=== PATIENT | male | born 1985 | race Hispanic/Latino ===

== ENCOUNTER 2020-08-10 08:19 | Emergency (ER) | payer OTHER ==
--- NOTE | 2020-08-10 10:19 | EDPHYS ---
Physician Documentation [facility] Name: Td Jackson Age: 35 yrs Sex: Male : 1985 Arrival Date: 08/10/2020 Time: 08:21 Bed 14 Private MD: ED Physician Mikie Crowley HPI: 08/10 16:35 This 35 yrs old Male presents to ER via Ambulatory with complaints of Covid +, tw4 Fever, Chills. 16:35 The patient reports fever, not measured (subjective). Onset: The symptoms/episode tw4 began/occurred yesterday. Modifying factors: there are no obvious modifying factors. Associated signs and symptoms: Pertinent positives: cough, shortness of breath. Severity of symptoms: At their worst the symptoms were moderate in the emergency department the symptoms are unchanged. diagnosed with covid three days ago. Historical: - Allergies: 08:44 No Known Allergies; ss - PMHx: 08:44 None; ss - PSHx: 08:44 None; ss - Immunization history:: Adult Immunizations unknown. - Social history:: Smoking status: Patient denies any tobacco usage or history of. ROS: 16:35 Constitutional: Negative for fever, chills, and weight loss, Eyes: Negative for injury, tw4 pain, redness, and discharge, Cardiovascular: Negative for chest pain, palpitations, and edema, Abdomen/GI: Negative for abdominal pain, nausea, vomiting, diarrhea, and constipation, Back: Negative for injury and pain, MS/Extremity: Negative for injury and deformity, Skin: Negative for injury, rash, and discoloration, Neuro: Negative for headache, weakness, numbness, tingling, and seizure. 16:35 Respiratory: Positive for cough, shortness of breath. Exam: 16:35 Constitutional: This is a well developed, well nourished patient who is awake, alert, tw4 and in no acute distress. Head/Face: Normocephalic, atraumatic. Chest/axilla: Normal chest wall appearance and motion. Nontender with no deformity. No lesions are appreciated. Cardiovascular: Regular rate and rhythm with a normal S1 and S2. No gallops, murmurs, or rubs. Normal PMI, no JVD. No pulse deficits. Respiratory: Lungs have equal breath sounds bilaterally, clear to auscultation and percussion. No rales, rhonchi or wheezes noted. No increased work of breathing, no retractions or nasal flaring. Abdomen/GI: Soft, non-tender, with normal bowel sounds. No distension or tympany. No guarding or rebound. No evidence of tenderness throughout. Back: No spinal tenderness. No costovertebral tenderness. Full range of motion. MS/ Extremity: Pulses equal, no cyanosis. Neurovascular intact. Full, normal range of motion. Neuro: Awake and alert, GCS 15, oriented to person, place, time, and situation. Cranial nerves II-XII grossly intact. Motor strength 5/5 in all extremities. Sensory grossly intact. Cerebellar exam normal. Normal gait. Vital Signs: 08:40 BP 130 / 88; Pulse 104; Resp 17; Temp 98.2(TE); Pulse Ox 98% on R/A; Weight 95.25 kg; ss Height 5 ft. 9 in. (175.26 cm); Pain 7/10; 08:40 Body Mass Index 31.01 (95.25 kg, 175.26 cm) ss MDM: 09:26 Patient medically screened. tw4 16:35 Differential diagnosis: viral Infection, bacterial infection, URI, pneumonia. Data tw4 reviewed: vital signs, nurses notes. Data reviewed: radiologic studies, plain films. Data interpreted: Pulse oximetry: Interpretation: normal. Test interpretation: by ED physician or midlevel provider: plain radiologic studies. Counseling: I had a detailed discussion with the patient and/or guardian regarding: the historical points, exam findings, and any diagnostic results supporting the discharge/admit diagnosis. Special discussion: I discussed with the patient/guardian in detail that at this point there is no indication for admission to the hospital. It is understood, however, that if the symptoms persist or worsen the patient needs to return immediately for re-evaluation. 08/10 08:58 Order name: CXR XRAY; Complete Time: 10:22 tw4 Administered Medications: No medications were administered Disposition: 08/10/20 10:19 Discharged to Home. Impression: Coronavirus infection, unspecified, Dyspnea. - Condition is Stable. - Discharge Instructions: Upper Respiratory Infection, Adult, COVID-19. - Prescriptions for Albuterol Sulfate 2.5 mg /3 mL (0.083 %) Inhalation Solution for Nebulization - inhale 1 unit by NEBULIZATION route every 8 hours As needed; 1 box. Albuterol Sulfate 90 mcg/actuation - inhale 1-2 puff by INHALATION route every 4-6 hours; 1 Inhaler. NEBULIZER - inhale 1 application by NEBULIZATION route 4 times per day; 1 unit. - Medication Reconciliation Form, Thank You Letter, Antibiotic Education, Prescription Opioid Use form. - Follow up: Private Physician; When: Upon discharge from the Emergency Department; Reason: Recheck today's complaints, Continuance of care, Re-evaluation by your physician. - Problem is new. - Symptoms have improved. Signatures: Dispatcher [employer] EDFL Lydia Merrill RN RN ss Karyna Andrade RN RN hb Mikie Crowley MD MD tw4 Corrections: (The following items were deleted from the chart) 10:53 10:19 08/10/2020 10:19 Discharged to Home. Impression: Coronavirus infection, hb unspecified; Dyspnea. Condition is Stable. Forms are Medication Reconciliation Form, Thank You Letter, Antibiotic Education, Prescription Opioid Use. Follow up: Private Physician; When: Upon discharge from the Emergency Department; Reason: Recheck today's complaints, Continuance of care, Re-evaluation by your physician. Problem is new. Symptoms have improved. tw4
--- NOTE | 2020-08-10 10:19 | ER ---
Nurse's Notes [facility] Name: Td Jackson Age: 35 yrs Sex: Male : 1985 Arrival Date: 08/10/2020 Time: 08:21 Bed 14 Private MD: Diagnosis: Coronavirus infection, unspecified;Dyspnea Presentation: 08/10 08:40 Chief complaint: Patient states: Diagnosed with COVID on Wednesday. Pt c/o pain in chest ss that is worse with deep breathing since diagnosed with COVID, but is worse today. Coronavirus screen: Client presents with at least one sign or symptom that may indicate coronavirus-19. Standard/surgical mask placed on the client. Provider contacted for isolation considerations. Ebola Screen: Patient denies exposure to infectious person. Patient denies travel to an Ebola-affected area in the 21 days before illness onset. Initial Sepsis Screen: Does the patient meet any 2 criteria? HR > 90 bpm. Does the patient have a suspected source of infection? No. Patient's initial sepsis screen is negative. Risk Assessment: Do you want to hurt yourself or someone else? Patient reports no desire to harm self or others. Onset of symptoms was August 03, 2020. 08:40 Method Of Arrival: Ambulatory ss 08:40 Acuity: IGNACIO 3 ss Historical: - Allergies: 08:44 No Known Allergies; ss - PMHx: 08:44 None; ss - PSHx: 08:44 None; ss - Immunization history:: Adult Immunizations unknown. - Social history:: Smoking status: Patient denies any tobacco usage or history of. Screenin:33 Abuse screen: Denies threats or abuse. Denies injuries from another. Nutritional hb screening: No deficits noted. Tuberculosis screening: No symptoms or risk factors identified. Fall Risk None identified. Assessment: 09:35 General: Appears in no apparent distress. Behavior is calm, cooperative. Pain: Pain hb currently is 7 out of 10 on a pain scale. Neuro: Level of Consciousness is awake, alert, obeys commands, Oriented to person, place, time, situation. Cardiovascular: Capillary refill < 3 seconds Patient's skin is warm and dry. Respiratory: Reports shortness of breath cough that is Respiratory effort is even, unlabored, Respiratory pattern is regular, symmetrical. GI: No signs and/or symptoms were reported involving the gastrointestinal system. : No signs and/or symptoms were reported regarding the genitourinary system. EENT: No signs and/or symptoms were reported regarding the EENT system. Derm: Skin is pink, warm \T\ dry. normal. Musculoskeletal: No signs and/or symptoms reported regarding the musculoskeletal system. 10:32 Reassessment: Patient appears in no apparent distress at this time. Patient and/or hb family updated on plan of care and expected duration. Pain level reassessed. Patient is alert, oriented x 3, equal unlabored respirations, skin warm/dry/pink. Vital Signs: 08:40 BP 130 / 88; Pulse 104; Resp 17; Temp 98.2(TE); Pulse Ox 98% on R/A; Weight 95.25 kg; ss Height 5 ft. 9 in. (175.26 cm); Pain 7/10; 08:40 Body Mass Index 31.01 (95.25 kg, 175.26 cm) ED Course: 08:21 Patient arrived in ED. ds1 08:43 Triage completed. ss 08:44 Arm band placed on right wrist. 08:57 Mikie Crowley MD is Attending Physician. tw4 09:26 Karyna Andrade, RN is Primary Nurse. 09:35 CXR XRAY In Process Unspecified. EDMS 09:35 Patient has correct armband on for positive identification. Bed in low position. Call hb light in reach. Side rails up X 1. 10:32 No provider procedures requiring assistance completed. Patient did not have IV access hb during this emergency room visit. Administered Medications: No medications were administered Outcome: 10:19 Discharge ordered by . tw4 10:32 Discharged to home ambulatory. hb 10:32 Condition: stable 10:32 Discharge instructions given to patient, Instructed on discharge instructions, follow up and referral plans. medication usage, Demonstrated understanding of instructions, follow-up care, medications, Prescriptions given X 3. 10:53 Patient left the ED. hb Signatures: Dispatcher [employer] [facility] Paola Albert ds1 Lydia Merrill, CASEY PEÑA Karyna Andrade, Mikie Glass RN, MD MD tw4
--- NOTE | 2020-08-10 10:21 | RAD REPORT ---
EXAM DESCRIPTION: RAD - Chest Single View - 08/10/2020 9:35 am CLINICAL HISTORY: Cough;SOB Chest pain. COMPARISON: No comparisons FINDINGS: Portable technique limits examination quality. Mild left lung opacities are present likely related to infection. The right lung appears clear. The h eart is normal in size. No displaced fractures.
[2020-08-10 11:01] VITALS: BP 130/88; TEMP 98.2; O2SAT 98
== END 2020-08-10 10:53 | disposition home or self-care (01) ==
LOC: ER 08:19 → EDSTATUS 08:32 → ER 10:53
DX: U07.1 COVID-19 (principal)
CPT/HCPCS: 71045; 99283